=== PATIENT | female | born 1955 | race Caucasian/White ===

== ENCOUNTER 2018-10-02 08:16 | Emergency (ER) | payer OTHER ==
[~2018-10-02] VITALS: Ht 165.1 cm; Wt 70.3 kg
[~2018-10-02 08:16] MED LIST: ALPR0.25 PO; ASPI-1169 PO; ESOM20CA PO
[2018-10-02] MEDS ORDERED: LORAZEPAM INJ 2 MG/ML VIAL ONE (08:28)
[2018-10-02] MEDS ORDERED: LORAZEPAM INJ 2 MG/ML VIAL IV ONE (08:30)
[2018-10-02 08:37] LABS: BASOPHILS % (AUTO) 1.1 % (0.0-2.0); EOSINOPHILS % (AUTO) 3.1 % (0.0-6.0); HEMATOCRIT 37 % (33-45); HEMOGLOBIN 12.5 g/dL (11.5-14.8); LYMPHOCYTES # (AUTO) 0.9 /CMM (0.8-4.8); LYMPHOCYTES % (AUTO) 22.2 % (20.0-44.0); MEAN CORPUSCULAR HGB CONC 34 g/dl (31.0-36.0); MEAN CORPUSCULAR VOLUME 99 fL (82-100); MONOCYTES # (AUTO) 0.7 /CMM (0.1-1.30); MONOCYTES % (AUTO) 16.6 % (2.0-12.0); NEUTROPHILS # (AUTO) 2.4 /CMM (1.8-8.9); PLATELET COUNT (AUTO) 165 /CMM (150-450); RED BLOOD CELL COUNT(AUTO) 3.71 MIL/uL (4.0-5.2); WHITE BLOOD COUNT (AUTO) 4.2 K/uL (4.3-11.0)
[2018-10-02 08:43] LABS: CALCIUM, SERUM 9.5 mg/dL (8.5-10.1); CARBON DIOXIDE 24 mmol/L (21-32); CHLORIDE 102 mmol/L (98-107); CREATININE 0.9 mg/dL (0.6-1.3); GLUCOSE 133 mg/dL (74-106); POTASSIUM 4.3 mmol/L (3.5-5.1); SODIUM SERUM 139 mmol/L (136-145); UREA NITROGEN, BLOOD 7 mg/dL (7-18)
--- NOTE | 2018-10-02 08:45 | NUR ---
MESSI FROM HOME. TO ER BED 10. AAOX4. BREATHING RAPID. SATTING GOOD. TREMBLING. C/O SUDDEN ONSET OF CHEST PAIN EXTENDING TO L ARM. PT PT SHE WAS WALKING HER DONE THEN SHE FELT PAIN ON HER L ARM STARTED TO GET NERVOUS AND START HAVING CHEST PAIN. PT REPORT PAIN PRESSURE /. -N-V. NO SOB REPORTED. EMS GAVE A FULL DOSE ASPIRIN AND 2 SPRAY OF NITRO GLYCERIN EN ROUTE. MD AT BEDSIDE. ORDERS RECEIVED. EKG AT BEDSIDE.
[2018-10-02 08:56] LABS: B-TYPE NATRIURETIC PEPTIDE 199 PG/ML (0-125)
--- NOTE | 2018-10-02 10:11 | NUR ---
PT COMPLAINED OF L ARM PAIN AGAIN. REPORTS THAT SHE HAD A FALL 2 WEEKS AGO AND HURT HER SHOULDER. MD AWARE. REPEAT EKG ORDERED
--- NOTE | 2018-10-02 10:14 | NUR ---
EMT AT BEDSIDE FOR EKG
[2018-10-02] MEDS ORDERED: KETOROLAC TROMETHAMINE 15 MG/ML VIAL ONE (11:11)
[2018-10-02] MEDS ORDERED: KETOROLAC TROMETHAMINE INJ 30 MG/ML VIAL IV ONE (11:30)
--- NOTE | 2018-10-02 12:58 | NUR ---
IV removed. Catheter intact and site benign. Pressure and 4x4 applied to site. No bleeding noted. Patient discharged to home in stable condition. Written and verbal after care instructions given. Patient verbalizes understanding of instruction. Pt ambulatory with a steady gait
[2018-10-02 13:00] VITALS: BP 128/78
== END 2018-10-02 13:01 | disposition home or self-care (01) ==
LOC: ER 08:28
DX: R07.89 Other chest pain (principal); F41.9 Anxiety disorder, unspecified; K21.9 Gastro-esophageal reflux disease without esophagitis; Z85.3 Personal history of malignant neoplasm of breast; Z85.048 Personal history of other malignant neoplasm of rectum, rectosigmoid junction, and anus; Z90.49 Acquired absence of other specified parts of digestive tract; Z88.8 Allergy status to other drugs, medicaments and biological substances; Z79.82 Long term (current) use of aspirin; Z79.899 Other long term (current) drug therapy
CPT/HCPCS: 36415; 71045; 80048; 83880; 84484 ×2; 85025; 85730; 93005 ×2; 96374; 96375; 99284; J1885; J2060

== ENCOUNTER 2019-08-17 21:01 | Emergency (ER) | payer BC, OTHER ==
[~2019-08-17] VITALS: Ht 165.1 cm; Wt 58.1 kg
[2019-08-17 21:03] VITALS: BP 127/77
--- NOTE | 2019-08-17 21:52 | NUR ---
[employer] AT BEDSIDE
[2019-08-17 22:04] LABS: BASOPHILS # (AUTO) 0.1 /CMM (0.0-0.2); HEMOGLOBIN 11.3 g/dL (11.5-14.8); LYMPHOCYTES # (AUTO) 0.8 /CMM (0.8-4.8); MEAN CORPUSCULAR HGB CONC 34 g/dl (31.0-36.0); MONOCYTES # (AUTO) 0.7 /CMM (0.1-1.30); NEUTROPHILS # (AUTO) 1.6 /CMM (1.8-8.9); WHITE BLOOD COUNT (AUTO) 3.3 K/uL (4.3-11.0)
[2019-08-17 22:10] LABS: BASOPHILS % (AUTO) 2.3 % (0.0-2.0); EOSINOPHILS % (AUTO) 3.2 % (0.0-6.0); HEMATOCRIT 33 % (33-45); LYMPHOCYTES % (AUTO) 25.4 % (20.0-44.0); MEAN CORPUSCULAR VOLUME 99 fL (82-100); MONOCYTES % (AUTO) 21.3 % (2.0-12.0); NEUTROPHILS % (AUTO) 47.8 % (43.0-81.0); PLATELET COUNT (AUTO) 193 /CMM (150-450); RED BLOOD CELL COUNT(AUTO) 3.36 MIL/uL (4.0-5.2)
[2019-08-17 22:14] LABS: CALCIUM, SERUM 8.8 mg/dL (8.5-10.1); CARBON DIOXIDE 22 mmol/L (21-32); CHLORIDE 104 mmol/L (98-107); CREATININE 0.6 mg/dL (0.6-1.3); GLUCOSE 119 mg/dL (74-106); POTASSIUM 3.6 mmol/L (3.5-5.1); SODIUM SERUM 142 mmol/L (136-145); UREA NITROGEN, BLOOD 7 mg/dL (7-18)
[2019-08-17] MEDS ORDERED: LORAZEPAM 1 MG TABLET ONE (22:14)
[2019-08-17 22:27] LABS: ALANINE AMINOTRANSFERASE 74 U/L (12-78); ALBUMIN 3.7 g/dL (3.4-5.0); ALKALINE PHOSPHATASE 175 U/L (46-116); ASPARTATE AMINOTRANSFERASE 89 U/L (15-37); B-TYPE NATRIURETIC PEPTIDE 105 PG/ML (0-125); BILIRUBIN,DIRECT 0.1 mg/dL (0.0-0.2); BILIRUBIN,TOTAL 0.2 mg/dL (0.2-1.0); TOTAL PROTEIN, SERUM 6.8 g/dL (6.4-8.2)
[2019-08-17] MEDS ORDERED: LORAZEPAM 1 MG TABLET PO ONE (22:30)
[2019-08-17] MEDS ORDERED: LORAZEPAM INJ 2 MG/ML VIAL IV ONE (22:30)
[2019-08-17 23:53] LABS: EOSINOPHILS % (MANUAL) 2 % (0-4); LYMPHOCYTES % (MANUAL) 31 % (16-48); MONOCYTES % (MANUAL) 15 % (0-11.0); NEUTROPHILS % (MANUAL) 52 (42-76)
== END 2019-08-17 22:50 | disposition home or self-care (01) ==
LOC: ER 21:01
DX: F41.9 Anxiety disorder, unspecified (principal); K21.9 Gastro-esophageal reflux disease without esophagitis; Z85.3 Personal history of malignant neoplasm of breast; Z85.048 Personal history of other malignant neoplasm of rectum, rectosigmoid junction, and anus; Z60.2 Problems related to living alone; Z79.899 Other long term (current) drug therapy; Z79.82 Long term (current) use of aspirin
CPT/HCPCS: 36415; 71045-TC; 80048-TC; 80076-TC; 83880; 84484-TC; 85025-TC; 85730-TC